=== PATIENT | male | born 1990 | race Hispanic/Latino ===

== ENCOUNTER 2023-05-28 14:52 | Emergency (ER) | payer SELFPAY ==
[2023-05-28] MEDS ORDERED: ONDANSETRON 4 MG/2 ML VIAL ONE (15:57)
[2023-05-28] MEDS ORDERED: FAMOTIDINE 20 MG/2 ML VIAL IV ONE (15:57)
[2023-05-28] MEDS ORDERED: NA CHLORIDE 0.9% 1,000 ML ONE (15:58)
[2023-05-28 16:00] LABS: Absolute Lymphocytes (CBC) 0.6 K/uL (0.7-4.9); MCV 92.4 fL (80-100); MPV 8.8 fL (7.6-11.3); Platelets 196 thou/uL (152-406); RBC Red Blood Cell Count 5.09 M/uL (4.33-5.43)
[2023-05-28 16:22] LABS: Albumin 4.2 g/dL (3.4-5.0); Potassium 3.7 mEq/L (3.5-5.1); Protein, Total 8.9 g/dL (6.4-8.2)
--- NOTE | 2023-05-28 17:11 | RAD REPORT ---
EXAM DESCRIPTION: CT - Abdomen Pelvis W Contrast - 05/28/2023 4:23 pm CLINICAL HISTORY: Abdominal pain COMPARISON: none. TECHNIQUE: Computed axial tomography of the abdomen pelvis was obtained. 100 cc Isovue-300 was admin istered intravenously. Oral contrast was not requested which limits evaluation of bowel and appendix All CT scans are performed using dose optimization technique as appropriate and may include automated exposure control or mA/KV adjustment according to patient size. FINDINGS: Fatty liver. Spleen, pancreas, adrenals and kidneys unremarkable No evidence of diverticulitis. Fluid within large and small bowel Moderate umbilical hernia. Normal appendix Chronic deformity right femoral head IMPRESSION: Fluid within large and small bowel may indicate an enteritis Fatty liver Moderate umbilical hernia
[2023-05-28 17:51] LABS: Blood Morphology Comment NOT SEEN (NOT SEEN); Platelet Estimate ADEQ; White Blood Cell Scan OK (OK)
--- NOTE | 2023-05-28 19:44 | RAD REPORT ---
EXAM DESCRIPTION: US - Abdomen Exam Limited - 05/28/2023 7:22 pm CLINICAL HISTORY: Abdominal pain. Vomiting COMPARISON: None. FINDINGS: The gallbladder wall is not thickened. A gallstone is not seen. A 3 millimeter gallbladder polyp The biliary tree is normal caliber. IMPRESSION: 3 millimeter gallbladder polyp
--- NOTE | 2023-05-28 21:35 | EDPHYS ---
Physician Documentation [facility] Name: Viet Addison Age: 32 yrs Sex: Male : 1990 Arrival Date: 05/28/2023 Time: 14:52 Bed 4 Private MD: ED Physician Pipo Vernon HPI: 05/28 15:25 This 32 yrs old Male presents to ER via Ambulatory with complaints of Vomiting.cp 15:25 The patient presents to the emergency department with vomiting, that is continuous, cp abdominal pain, of the mid abdomen. 15:25 Onset: The symptoms/episode began/occurred today, after ingesting detox drink. cp Associated signs and symptoms: Pertinent negatives: constipation, diarrhea, fever, vomiting blood. Severity of symptoms: in the emergency department the symptoms are unchanged despite home interventions. Historical: - Allergies: 15:06 No Known Allergies; nj1 - PMHx: 15:06 None; nj1 - Immunization history:: Client reports having NOT received the Covid vaccine. - Social history:: Smoking status: Patient denies any tobacco usage or history of. Patient uses alcohol, on a daily basis. ROS: 15:30 Constitutional: Positive for poor PO intake, Negative for body aches, chills, fever, cp 15:30 Eyes: Negative for injury, pain, redness, and discharge, cp 15:30 ENT: Positive for sore throat, Negative for drainage from ear(s), ear pain, difficulty swallowing, difficulty handling secretions, 15:30 Cardiovascular: Negative for chest pain, palpitations, 15:30 Respiratory: Negative for cough, shortness of breath, wheezing, 15:30 Abdomen/GI: Positive for abdominal pain, nausea and vomiting, Negative for diarrhea, constipation, hematemesis, black/tarry stool, rectal bleeding, 15:30 Neuro: Negative for altered mental status, dizziness, headache, loss of consciousness, syncope, weakness, 15:30 All other systems are negative, Exam: 15:35 Constitutional: The patient appears in no acute distress, alert, awake, non-toxic, well cp developed, well nourished, 15:35 Head/Face: Normocephalic, atraumatic. cp 15:35 Eyes: Periorbital structures: appear normal, Conjunctiva: normal, no exudate, no injection, Sclera: no appreciated abnormality, Lids and lashes: appear normal, bilaterally, 15:35 ENT: External ear(s): are unremarkable, Nose: is normal, Mouth: Lips: moist, Oral mucosa: pink and intact, moist, Posterior pharynx: is normal, airway is patent, no erythema, no exudate, 15:35 Neck: ROM/movement: is normal, is supple, without pain, no range of motions limitations, 15:35 Chest/axilla: Inspection: normal, Palpation: is normal, no crepitus, no tenderness, 15:35 Cardiovascular: Rate: normal, Rhythm: regular, 15:35 Respiratory: the patient does not display signs of respiratory distress, Respirations: normal, no use of accessory muscles, no retractions, labored breathing, is not present, Breath sounds: are clear throughout, no decreased breath sounds, no stridor, no wheezing, 15:35 Abdomen/GI: Inspection: abdomen appears normal, Bowel sounds: active, all quadrants, Palpation: soft, in all quadrants, moderate abdominal tenderness, in the mid abdomen bilaterally, rebound tenderness, is not appreciated, involuntary guarding, is not appreciated, 15:35 Back: CVA tenderness, is absent, 15:35 Skin: no rash present. Vital Signs: 15:03 BP 141 / 112; Pulse 81; Resp 18; Temp 98.5(O); Pulse Ox 100% on R/A; Weight 99.79 kg; nj1 Height 5 ft. 8 in. ; 18:19 BP 138 / 92; Pulse 77; Resp 15; Pulse Ox 99% ; ko1 18:44 BP 141 / 91; Pulse 72; Resp 14; Pulse Ox 99% ; ko1 19:30 BP 132 / 81; Pulse 70; Resp 17 S; Pulse Ox 99% on R/A; ha1 19:30 BP 128 / 80; Pulse 65; Resp 17 S; Pulse Ox 99% on R/A; ha1 21:43 BP 113 / 72; Pulse 66; Resp 17; Pulse Ox 99% ; vc1 15:03 Body Mass Index 32.58 (99.79 kg, 175 cm) nj1 MDM: 15:16 Patient medically screened. cp 16:00 Differential diagnosis: Nonspecific abd pain, gastritis, cholecystitis, pancreatitis, cp viral gastroenteritis, gastroenteritis. 21:33 Data reviewed: vital signs, nurses notes, lab test result(s), radiologic studies, CT cp scan, ultrasound. 21:33 Consideration of Admission/Observation Escalation of care including cp admission/observation considered. I considered the following discharge prescriptions or medication management in the emergency department Medications were administered in the Emergency Department. See MAR. Special discussion: Based on the patient's Hx, exam, and Dx evaluation, there is no indication for emergent surgery or inpatient Tx. It is understood by the patient/guardian that if the Sx's persist or worsen they need to return immediately for re-evaluation. 21:33 ED course: VSS. Vomiting resolved and patient tolerating po fluids. Discussed elevated cp liver enzymes and recommendation for GI f/u. Avoid alcohol and tylenol. 05/28 15:16 Order name: CBC with Diff; Complete Time: 18:37 cp 05/28 18:37 Interpretation: Normal except: HARRISON% 86.8; LYM% 6.0; LYMA 0.6. cp 05/28 15:16 Order name: CMP; Complete Time: 18:37 cp 05/28 19:29 Interpretation: Normal except: NA 134; GLUC 130; AST 297; ALT 536; TP 8.9; GLOB 4.7; cp A/G 0.9. 05/28 15:16 Order name: Lipase; Complete Time: 18:37 cp 05/28 17:52 Order name: CBC Smear Scan; Complete Time: 18:37 EDMS 05/28 15:45 Order name: CT Abd/Pelvis - IV Contrast Only; Complete Time: 18:37 cp 05/28 18:38 Order name: US Abdomen Limited: gallbladder/liver; Complete Time: 19:54 cp 05/28 19:55 Interpretation: Report reviewed. 05/28 15:16 Order name: IV Saline Lock; Complete Time: 15:50 cp 05/28 15:16 Order name: Labs collected and sent; Complete Time: 15:50 cp 05/28 19:55 Order name: PO challenge; Complete Time: 20:48 cp Administered Medications: 16:02 Drug: NS 0.9% IV 1000 ml IV at 1 bolus Per protocol; 1000 mL bolus Route: IV; Rate: 1 ko1 bolus; Site: right antecubital; 16:02 Drug: Famotidine IVP 20 mg IVP once; dilute with 10 mL 0.9% NaCl; give over 2 minutes ko1 Route: IVP; Site: right antecubital; 21:44 Follow up: Response: No adverse reaction; Marked relief of symptoms vc1 16:02 Drug: Ondansetron IVP 4 mg IVP once; over 2 minutes Route: IVP; Site: right antecubital;ko1 21:44 Follow up: Response: No adverse reaction; Marked relief of symptoms vc1 Disposition Summary: 05/28/23 21:34 Discharge Ordered Notes: Location: Home cp Problem: new cp Symptoms: have improved cp Condition: Stable cp Diagnosis - Nausea with vomiting, unspecified cp - Abnormal results of liver function studies cp Followup: cp - With: Sanchez Cerda MD - When: 1 week - Reason: elevated liver enzymes Discharge Instructions: - Discharge Summary Sheet cp - Nausea and Vomiting, Adult cp - Liver Function Tests cp Forms: - Medication Reconciliation Form cp - Thank You Letter cp - Antibiotic Education cp - Prescription Opioid Use cp - Patient Portal Instructions cp - Leadership Thank You Letter cp Prescriptions: - Pepcid 20 mg Oral Tablet - take 1 tablet ORAL route every 12 hours for 10 days; 20 tablet; Refills: 0, cp Product Selection Permitted - Zofran 4 mg Oral Tablet - take 1 tablet ORAL route every 12 hours As needed; 20 tablet; Refills: 0, cp Product Selection Permitted Signatures: Dispatcher [employer] Pipo Newby MD MD cha Page, Corey, PA PA cp Katherine Alfred RN RN ko1 Nel Buchanan RN RN nj1 Helena Andrews RN vc1
--- NOTE | 2023-05-28 21:35 | ER ---
Nurse's Notes [facility] Name: Viet Addison Age: 32 yrs Sex: Male : 1990 Arrival Date: 05/28/2023 Time: 14:52 Bed 4 Private MD: Diagnosis: Nausea with vomiting, unspecified;Abnormal results of liver function studies Presentation: 05/28 15:03 Chief complaint: Patient states: Pt states he took a drink that will detoxify him, and nj1 about 2 hours later he started vomiting, has vomited about 15 times. Unable to tolerate anything by mouth. Coronavirus screen: Vaccine status: Patient reports being unvaccinated. Ebola Screen: Patient denies travel to an Ebola-affected area in the 21 days before illness onset. Initial Sepsis Screen: Does the patient meet any 2 criteria? No. Patient's initial sepsis screen is negative. Does the patient have a suspected source of infection? No. Patient's initial sepsis screen is negative. Risk Assessment: Do you want to hurt yourself or someone else? Patient reports no desire to harm self or others. Onset of symptoms was May 28, 2023. 15:03 Method Of Arrival: Ambulatory nj 15:03 Acuity: BRYSON 3 nj1 Historical: - Allergies: 15:06 No Known Allergies; nj1 - PMHx: 15:06 None; nj1 - Immunization history:: Client reports having NOT received the Covid vaccine. - Social history:: Smoking status: Patient denies any tobacco usage or history of. Patient uses alcohol, on a daily basis. Screenin:12 [facility] ED Fall Risk Assessment (Adult) History of falling in the last 3 months, ko1 including since admission No falls in past 3 months (0 pts) Confusion or Disorientation No (0 pts) Intoxicated or Sedated No (0 pts) Impaired Gait No (0 pts) Mobility Assist Device Used No (0 pt) Altered Elimination No (0 pt) Score/Fall Risk Level 0 - 2 = Low Risk Oriented to surroundings, Maintained a safe environment, Educated pt \T\ family on fall prevention, incl call for assistance when getting out of bed, Assessed \T\ reinforced patient's understanding of fall precautions, Provided non-skid footwear, Hourly rounding (assess needs \T\ fall precautionary measures) done, Used ambulatory aids as needed (educated on \T\ assisted with), Used gait belt as appropriate. Abuse screen: Denies threats or abuse. Denies injuries from another. Nutritional screening: No deficits noted. Tuberculosis screening: No symptoms or risk factors identified. Assessment: 16:12 General: Appears distressed, ill, Behavior is calm, cooperative, appropriate for age. ko1 Pain: Complains of pain in abdomen. GI: Abdomen is flat, non-distended, Reports nausea, vomiting. 19:30 General: Appears comfortable, Behavior is calm, cooperative. Pain: Denies pain. Neuro: ha1 Level of Consciousness is awake, alert, obeys commands, Oriented to person, place, time, situation. Cardiovascular: Capillary refill Patient's skin is warm and dry. Respiratory: Airway is patent Respiratory effort is even, unlabored, Respiratory pattern is regular, symmetrical. GI: Abdomen is round non-distended, Bowel sounds present X 4 quads. Reports nausea. Derm: Skin is pink, warm \T\ dry. Musculoskeletal: Circulation, motion, and sensation intact. Range of motion: intact in all extremities. 20:48 Reassessment: Patient and/or family updated on plan of care and expected duration. Pain ha1 level reassessed. Patient is alert, oriented x 3, equal unlabored respirations, skin warm/dry/pink. Patient denies pain at this time. 21:43 Reassessment: Patient and/or family updated on plan of care and expected duration. Pain vc1 level reassessed. Patient is alert, oriented x 3, equal unlabored respirations, skin warm/dry/pink. Patient states symptoms have improved. Vital Signs: 15:03 BP 141 / 112; Pulse 81; Resp 18; Temp 98.5(O); Pulse Ox 100% on R/A; Weight 99.79 kg; nj1 Height 5 ft. 8 in. ; 18:19 BP 138 / 92; Pulse 77; Resp 15; Pulse Ox 99% ; ko1 18:44 BP 141 / 91; Pulse 72; Resp 14; Pulse Ox 99% ; ko1 19:30 BP 132 / 81; Pulse 70; Resp 17 S; Pulse Ox 99% on R/A; ha1 19:30 BP 128 / 80; Pulse 65; Resp 17 S; Pulse Ox 99% on R/A; ha1 21:43 BP 113 / 72; Pulse 66; Resp 17; Pulse Ox 99% ; vc1 15:03 Body Mass Index 32.58 (99.79 kg, 175 cm) nj1 ED Course: 14:59 Patient arrived in ED. im 15:03 Pipo Lim PA is PHCP. cp 15:03 Pipo Vernon MD is Attending Physician. cp 15:06 Triage completed. nj1 15:06 Arm band placed on left wrist. nj1 15:47 Mary Barroso, RN is Primary Nurse. ph 15:48 Initial lab(s) drawn, by me, sent to lab. Inserted saline lock: 20 gauge in right aa5 antecubital area, using aseptic technique. Blood collected. 16:12 Patient has correct armband on for positive identification. Bed in low position. Call ko1 light in reach. Provided Education on: na. Pulse ox on. NIBP on. Door closed. Noise minimized. Lights dimmed. 16:25 CT Abd/Pelvis - IV Contrast Only In Process Unspecified. EDMS 18:19 No provider procedures requiring assistance completed. ko1 19:24 US Abdomen Limited: gallbladder/liver In Process Unspecified. EDMS 21:33 Sanchez Cerda MD is Referral Physician. cp 22:02 IV discontinued, intact, bleeding controlled, No redness/swelling at site. Pressure vc1 dressing applied. Administered Medications: 16:02 Drug: NS 0.9% IV 1000 ml IV at 1 bolus Per protocol; 1000 mL bolus Route: IV; Rate: 1 ko1 bolus; Site: right antecubital; 16:02 Drug: Famotidine IVP 20 mg IVP once; dilute with 10 mL 0.9% NaCl; give over 2 minutes ko1 Route: IVP; Site: right antecubital; 21:44 Follow up: Response: No adverse reaction; Marked relief of symptoms vc1 16:02 Drug: Ondansetron IVP 4 mg IVP once; over 2 minutes Route: IVP; Site: right antecubital;ko1 21:44 Follow up: Response: No adverse reaction; Marked relief of symptoms vc1 Medication: 16:12 VIS not applicable for this client. ko1 Outcome: 21:34 Discharge ordered by . cp 22:01 Discharged to home ambulatory, vc1 22:01 Condition: good 22:01 Discharge instructions given to patient, Instructed on discharge instructions, follow up and referral plans. medication usage, Demonstrated understanding of instructions, follow-up care, medications, Prescriptions given X 2, 22:02 Patient left the ED. vc1 Signatures: Dispatcher [employer] EDMery Garcia, RN RN aa5 Mary Barroso, RN RN Pipo Gamez PA PA cp Calcote, Vanessa, RN RN vc1 Vania Reinoso RN RN ha1 Katherine Alfred RN RN ko1 Nel Buchanan RN RN nj1 Debbie Enriquez
[2023-05-28 22:45] VITALS: TEMP 98.5
[2023-05-28 22:55] VITALS: O2SAT 99
[2023-05-28 22:59] VITALS: BP 113/72
== END 2023-05-28 22:02 | disposition home or self-care (01) ==
LOC: ER 14:52
DX: R11.2 Nausea with vomiting, unspecified (principal); R94.5 Abnormal results of liver function studies
CPT/HCPCS: 36415; 74177; 76705; 80053; 83690; 85025; 96374; 96375; 99284; J2405; J7030; Q9967